=== PATIENT | male | born 1960 | race Two or more races ===

== ENCOUNTER 2018-11-01 11:04 | Inpatient (IN) | payer MEDICAID, OTHER ==
[2018-11-01] VITALS (13 sets, daily range): BP systolic 99–148; BP diastolic 47–93
[~2018-11-01] VITALS: Ht 175.3 cm; Wt 58.2 kg
--- NOTE | 2018-11-01 11:05 | NUR ---
PT JUAN FROM [address] [place] [address] FOR HYPOTENSION, PT AAOX2-3, -SOB, NAD NOTED, PENDING ER PROVIDER HUEYAL
[2018-11-01] MEDS ORDERED: IV NS 0.9% 1,000 ML BAG IV ONE ×3 (11:30→13:00)
[2018-11-01 12:16] LABS: BASOPHILS # (AUTO) 0.1 /CMM (0.0-0.2); BASOPHILS % (AUTO) 0.2 % (0.0-2.0); EOSINOPHILS % (AUTO) 0.2 % (0.0-6.0); HEMATOCRIT 32 % (39-51); HEMOGLOBIN 9.8 g/dL (13.5-17.5); LYMPHOCYTES # (AUTO) 1.8 /CMM (0.8-4.8); LYMPHOCYTES % (AUTO) 4.2 % (20.0-44.0); MEAN CORPUSCULAR HGB CONC 31 g/dl (31.0-36.0); MEAN CORPUSCULAR VOLUME 92 fL (80-96); MONOCYTES # (AUTO) 2.1 /CMM (0.1-1.30); NEUTROPHILS # (AUTO) 38.3 /CMM (1.8-8.9); NEUTROPHILS % (AUTO) 90.4 % (43.0-81.0); PLATELET COUNT (AUTO) 78 /CMM (150-450)
[2018-11-01 12:29] LABS: ALBUMIN 1.7 g/dL (3.4-5.0); BILIRUBIN,DIRECT 0.2 mg/dL (0.0-0.2); BILIRUBIN,TOTAL 0.4 mg/dL (0.2-1.0); CALCIUM, SERUM 7.5 mg/dL (8.5-10.1); CREATININE 6.4 mg/dL (0.6-1.3); POTASSIUM 5.1 mmol/L (3.5-5.1); TOTAL PROTEIN, SERUM 5.4 g/dL (6.4-8.2)
[2018-11-01 12:36] LABS: WHITE BLOOD COUNT (AUTO) 42.4 K/uL (4.3-11.0)
[2018-11-01] MEDS ORDERED: ALBUMIN 25% 12.5 GM/50 ML BOTTLE IV ONE (13:00)
[2018-11-01] MEDS ORDERED: SODIUM BICARBONATE SYR 50 MEQ/50 ML DISP.SYRIN IV ONE (13:00)
[2018-11-01] MEDS ORDERED: INSULIN REGULAR, HUMAN 100 UNIT/ML 10 ML VIAL SQ ONE (13:00)
[2018-11-01] MEDS ORDERED: ALBUMIN 25% 100 ML IV ONE (13:01)
[2018-11-01] MEDS ORDERED: SODIUM BICARBONATE SYR 50 MEQ/50 ML DISP.SYRIN ONE (13:02)
[2018-11-01] MEDS ORDERED: INSULIN REGULAR, HUMAN 100 UNIT/ML 10 ML VIAL ONE (13:02)
--- NOTE | 2018-11-01 13:02 | NUR ---
ADMITTING GIVEN MOVE SHEET FOR REGAL AUTH
[2018-11-01 13:44] LABS: BAND % (MANUAL) 3 % (0.0-5.0); LYMPHOCYTES % (MANUAL) 6 % (16-48); MONOCYTES % (MANUAL) 15 % (0-11.0); NEUTROPHILS % (MANUAL) 76 (42-76)
--- NOTE | 2018-11-01 14:11 | NUR ---
ICU BED REQUESTED
[2018-11-01] MEDS ORDERED: MAGN400O6 PO (14:27)
[2018-11-01] MEDS ORDERED: ASPI-1169 PO (14:27)
[2018-11-01] MEDS ORDERED: SENN-168 PO (14:27)
[2018-11-01] MEDS ORDERED: NA P133E RC (14:27)
[2018-11-01] MEDS ORDERED: CRAN450C PO (14:27)
[2018-11-01] MEDS ORDERED: SERT100T PO (14:27)
[2018-11-01] MEDS ORDERED: CHOL100040 PO (14:27)
[2018-11-01] MEDS ORDERED: ROSU20TA2 PO (14:27)
[2018-11-01] MEDS ORDERED: FAMO20TA8 PO (14:27)
[2018-11-01] MEDS ORDERED: ACET325T53 PO (14:27)
[2018-11-01] MEDS ORDERED: LOPE2CAP PO (14:27)
[2018-11-01] MEDS ORDERED: TAMS-12 PO (14:27)
[2018-11-01] MEDS ORDERED: LACT1CAP69 PO (14:27)
[2018-11-01] MEDS ORDERED: INSU100V27 SQ (14:27)
[2018-11-01] MEDS ORDERED: REPA0.5T4 PO (14:27)
[2018-11-01] MEDS ORDERED: FERR325T23 PO (14:27)
[2018-11-01] MEDS ORDERED: MIDO5TAB PO (14:27)
[2018-11-01] MEDS ORDERED: CALC-494 PO (14:27)
[2018-11-01] MEDS ORDERED: ONDA4TAB5 PO (14:27)
[2018-11-01] MEDS ORDERED: BISA10SU61 RC (14:27)
[2018-11-01] MEDS ORDERED: HYDR-4384 PO (14:27)
--- NOTE | 2018-11-01 14:44 | NUR ---
JEFF DELEON CALLED REGARDING PT, WILL CALL BACK FOR MORE INFO
--- NOTE | 2018-11-01 15:05 | NUR ---
NURSING SUP STATES IN A MEETING WILL CALL BACK
--- NOTE | 2018-11-01 15:06 | NUR ---
ICU 259
--- NOTE | 2018-11-01 15:28 | NUR ---
REPORT GIVEN REYES RN FOR RENETTA; PT WILL BE TRANSPORTED TO ICU VIA ACLS PROTOCOL
--- NOTE | 2018-11-01 15:30 | NUR ---
OVEN DAUBER NOTE RECEIVED REPORT FROM ER NURSE SAGE
--- NOTE | 2018-11-01 15:50 | NUR ---
BRICKLAYER PAVING BRICK INITIAL NOTE RECEIVED PATIENT AWAKE A/OX3, ABLE TO MAKE NEEDS KNOWN. RESPIRATIONS EVEN AND UNLABORED ON ROOM AIR TOLERATING WELL. ON TELE MONITOR SR. SKIN COOL AND DRY TO TOUCH. PER ER NURSE REPORT PATIENT HAS NO OUTPUT. F/C PATENT AND INTACT, NO OUTPUT NOTED. SKIN ASSESSMENT DONE. ABLE TO ASSIST WITH TURNING. NOTED WITH LOW TEMP, BARE HUGGER ORDERED, WILL PLACE ONCE RECEIVED. PERIPHERAL LINES PATENT AND INTACT. PENDING MD ORDER. ORIENTED PATIENT TO ROOM AND CALL LIGHT BUTTON. PATIENT VERBALIZED UNDERSTANDING TO CALL FOR ASSISTANCE WHEN NEEDED. SIDE RAILS UP AND LOCKED. BED KEPT AT LOWEST POSITION. CALL LIGHT KEPT WITHIN EASY REACH. WILL CONTINUE TO MONITOR.
--- NOTE | 2018-11-01 15:50 | NUR ---
PT WAS TRANSPORTED TO ICU
--- NOTE | 2018-11-01 16:30 | NUR ---
MUSTANGER NOTE SPOKE WITH PATIENT [facility] REGARDING NEXT OF KIN. PER CHARGE NURSE PATIENT HAS NO FAMILY MEMBER AND PATIENT IS RESPONSIBLE FOR HIMSELF.
[2018-11-01] MEDS ORDERED: *INSULIN REGULAR(HUMULIN R)HUM 100 UNIT/ML VIAL SQ PRN (17:30)
[2018-11-01] MEDS ORDERED: MIDODRINE HCL (5MG) 5 MG TABLET PO SCH (17:30)
[2018-11-01] MEDS ORDERED: DEXTROSE 50%-WATER 50 ML DISP.SYRIN IV PRN (17:30)
[2018-11-01] MEDS: IV NS 0.9% 1,000 ML IV PRN ×2 (17:37→23:55)
[2018-11-01] MEDS: BLOOD SUGAR DIAGNOSTIC 1 EACH STRIP VI SCH ×2 (17:55→22:01)
--- NOTE | 2018-11-01 18:51 | NUR ---
PRESENTATION SPECIALIST CLOSING NOTE NO APPARENT DISTRESS NOTED. ALL NEEDS ANTICIPATED AND MET. TEMPERATURE IMPROVING. F/C IN PLACE. SIDE RAILS UP AND LOCKED. BED KEPT AT LOWEST POSITION. CALL LIGHT KEPT WITHIN EASY REACH. BARE HUGGER IN PLACE. WILL ENDORSE TO CONTINUITY OF CARE TO PM NURSE.
[2018-11-01] MEDS: INSULIN REGULAR, HUMAN 100 UNIT/ML 3 ML VIAL SQ PRN (19:01)
--- NOTE | 2018-11-01 20:00 | NUR ---
RETAIL SOLAR ADVISOR NOTES RECEIVED PT ON BED.A/O X3 ON RA SATURATING WELL. ON TELE MONITOR SR 100. IV ACCESS PATENT AND INTACT. JORDAN CATH DRAINING NOT DRAINING ANY URINE. PT ON BEAR HUGGER FOR HYPOTENSION. HEAD OF BED ELEVATED. SIDE RAILS UP. CALL LIGHT WITHIN REACH. BED ALARM ON. WILL CONTINUE TO MONITOR PT CLOSELY.
[2018-11-01 21:26] LABS: IRON, SERUM 116 ug/dl (50-175); TOTAL IRON BINDING CAPACITY 146 ug/dl (250-450)
[2018-11-01] MEDS ORDERED: TAMSULOSIN 0.4 MG CAP.SR.24H PO SCH (22:00)
--- NOTE | 2018-11-01 23:27 | NUR ---
SKID ROAD MAN NOTES CALLED DR BROOKS FOR CT ABD RESULT. LASIX 40MG IV ONE TIME AND FLAGYL 500MG Q8H PO. PER DR BROOKS , PT STILL OKAY FOR TELE STATUS, WILL MONITOR PT CLOSELY.
[2018-11-01] MEDS ORDERED: FUROSEMIDE 40 MG/4 ML VIAL IV ONE (23:30)
[2018-11-01] MEDS: METRONIDAZOLE 500 MG TABLET PO SCH (23:50)
--- NOTE | 2018-11-01 23:51 | NUR ---
RULING MACHINE FEEDER NOTES LASIX NOT GIVEN , BP 94/48. DR BROOKS INFORMED.
[2018-11-02] VITALS (47 sets, daily range): BP systolic 54–155; BP diastolic 23–100
--- NOTE | 2018-11-02 02:51 | NUR ---
MINING MACHINERY ASSEMBLER NOTES BLADDER SCAN DONE. 300 ML OF RESIDUAL URINE, JORDAN CATHETER NOT DRAINING ANY URINE. PRIMARY RN AND CHARGE NURSE INSERTED NEW JORDAN CATH, NO URINE DRAINED. WILL FOLLOW UP MD IN AM.
[2018-11-02] MEDS ORDERED: NOREPINEPHRINE 4 MG/4 ML AMPUL IV ONE (04:18)
[2018-11-02] MEDS ORDERED: NOREPINEPHRINE 16 MG in IV D5W 500 ML IV PRN (04:30)
--- NOTE | 2018-11-02 04:39 | NUR ---
ORTHOPEDIC PHYSICIAN NOTES CALLED DR BROOKS FOR HYPOTENSION. PER DR BROOKS, START LEVOPHED DRIP AND ICU ORDER.
[2018-11-02] MEDS: METRONIDAZOLE 500 MG TABLET PO SCH ×2 (04:42→04:51)
--- NOTE | 2018-11-02 04:42 | NUR ---
SEED LABORATORY ASSISTANT NOTES HOLDING PO METRONIDAZOLE, PT ASPIRATION RISK.
[2018-11-02 04:48] LABS: BASOPHILS # (AUTO) 0.1 /CMM (0.0-0.2); BASOPHILS % (AUTO) 0.3 % (0.0-2.0); EOSINOPHILS % (AUTO) 0.2 % (0.0-6.0); HEMATOCRIT 37 % (39-51); HEMOGLOBIN 11.5 g/dL (13.5-17.5); LYMPHOCYTES # (AUTO) 2.2 /CMM (0.8-4.8); LYMPHOCYTES % (AUTO) 4.1 % (20.0-44.0); MEAN CORPUSCULAR HGB CONC 31 g/dl (31.0-36.0); MEAN CORPUSCULAR VOLUME 89 fL (80-96); MONOCYTES # (AUTO) 2.4 /CMM (0.1-1.30); MONOCYTES % (AUTO) 4.6 % (2.0-12.0); NEUTROPHILS # (AUTO) 47.4 /CMM (1.8-8.9); NEUTROPHILS % (AUTO) 90.8 % (43.0-81.0); PLATELET COUNT (AUTO) 93 /CMM (150-450); RED BLOOD CELL COUNT(AUTO) 4.16 MIL/uL (4.5-6.0)
[2018-11-02 05:09] LABS: THYROID STIMULATING HORMONE 1.353 uIU/mL (0.358-3.74)
[2018-11-02 05:10] LABS: WHITE BLOOD COUNT (AUTO) 52.2 K/uL (4.3-11.0)
[2018-11-02 05:28] LABS: CALCIUM, SERUM 7.5 mg/dL (8.5-10.1); CREATININE 6.5 mg/dL (0.6-1.3); MAGNESIUM 2.3 mg/dL (1.8-2.4); POTASSIUM 4.8 mmol/L (3.5-5.1)
--- NOTE | 2018-11-02 05:40 | NUR ---
AMMUNITION OFFICER NOTES CALLED DR BROOKS FOR WBC 52.2 AND BUN OF 114. PER DR CECILIA PEÑA 2.25G IV Q8H.
[2018-11-02 05:46] LABS: LYMPHOCYTES % (MANUAL) 4 % (16-48); MONOCYTES % (MANUAL) 4 % (0-11.0); NEUTROPHILS % (MANUAL) 83 (42-76)
[2018-11-02 05:47] LABS: BAND % (MANUAL) 5 % (0.0-5.0); METAMYELOCYTES % 4 % (0-0)
[2018-11-02] MEDS ORDERED: PIPERACILLIN /TAZOBACTAM 2.25 G in IV D5W 50 ML IV SCH ×2 (06:00→13:00)
[2018-11-02] MEDS ORDERED: PIPERACILLIN /TAZOBACTAM 2.25 G VIAL IV ONE (06:05)
--- NOTE | 2018-11-02 07:30 | NUR ---
SPLITTER HEAD INITIAL NOTE RECEIVED PATIENT RESTLESS, DROWSY, A/OX3, FOLLOWS COMMANDS AND ABLE TO MAKE NEEDS KNOWN. ABDOMEN TENDER TO TOUCH. SKIN COOL AND DRY TO TOUCH. SINUS TACH ON TELE MONITOR. WITH F/C IN PLACE, NO OUTPUT NOTED. ON LEVO AT 5MCG/MIN AND IVF AT 125ML/HR. SIDE RAILS UP AND LOCKED. BED KEPT AT LOWEST POSITION. CALL LIGHT KEPT WITHIN EASY REACH. WILL CONTINUE TO MONITOR.
[2018-11-02] MEDS: IV NS 0.9% 1,000 ML IV PRN (08:13)
--- NOTE | 2018-11-02 08:21 | NUR ---
CANINE DEPUTY NOTE INFORMED DR BROOKS REGARDING PATIENT RESTLESS, DROWSY AND TENDER ABDOMEN WITH ORDERS FOR US GUIDED PARACENTESIS TO BE DONE TODAY. NOTED AND CARRIED OUT.
[2018-11-02] MEDS: BLOOD SUGAR DIAGNOSTIC 1 EACH STRIP VI SCH (08:41)
[2018-11-02] MEDS: INSULIN REGULAR, HUMAN 100 UNIT/ML 3 ML VIAL SQ PRN (08:53)
[2018-11-02] MEDS ORDERED: REPAGLINIDE 0.5 MG TABLET PO SCH (09:00)
[2018-11-02] MEDS ORDERED: CALCIUM CARBONATE 500 MG TAB.CHEW PO SCH (09:00)
[2018-11-02] MEDS ORDERED: ASPIRIN 81 MG TAB.CHEW PO SCH (09:00)
[2018-11-02] MEDS ORDERED: SERTRALINE HCL 50 MG TABLET PO SCH (09:00)
[2018-11-02] MEDS ORDERED: MIDODRINE HCL (5MG) 5 MG TABLET PO SCH ×2 (09:00→13:00)
[2018-11-02] MEDS ORDERED: FAMOTIDINE (20 MG) 20 MG TABLET PO SCH (09:00)
[2018-11-02] MEDS ORDERED: LACTOBACILLUS RHAMNOSUS GG 1 EACH CAP.SPRINK PO SCH (09:00)
[2018-11-02] MEDS ORDERED: FERROUS SULFATE (325 MG) 325 MG/TAB TABLET PO SCH (09:00)
--- NOTE | 2018-11-02 09:09 | NUR ---
MEDICAL INSTRUMENT TECHNICIAN NOTE SEEN AND EXAMINED BY DR. BROOKS, EXPLAINED PLAN FOR US GUIDED PARACENTESIS. CONSENT RECEIVED.
[2018-11-02] MEDS ORDERED: INSULIN GLARGINE, 100 UNIT/ML CARTRIDGE SQ SCH (09:30)
[2018-11-02] MEDS ORDERED: FUROSEMIDE 20 MG/2 ML VIAL IV ONE (09:30)
--- NOTE | 2018-11-02 09:53 | NUR ---
DEFENCE FORCE SENIOR OFFICER NOTE NON-ADMIN LANTUS, POOR ORAL INTAKE, DID NOT EAT BREAKFAST
--- NOTE | 2018-11-02 09:54 | NUR ---
MARKET DEVELOPMENT EXECUTIVE NOTE SPOKE WITH INTEGRATION AIDE, WILL COME AROUND 11AM TO DO PROCEDURE.
--- NOTE | 2018-11-02 10:29 | NUR ---
LADIES SUIT OPERATOR NOTE ALL PINK STCK MED ONCE CLEARED FOR PATIENTS SAFETY
--- NOTE | 2018-11-02 10:59 | NUR ---
TRIAGE LICENSED PRACTICAL NURSE NOTE PATIENT UNRESPONSIVE. DORIE HACKETT INITIATED. PLEASE SEE DORIE HACKETT FORM. Addendum: 11/02/18 at 1542 by REYES SANTIAGO RN CHIN ADD TO NOTE: BULLET LUBRICANT MIXER NOTED PATIENT BLOOD PRESSURE LOW AND HEART RATE DROPPING. ENTERED PATIENTS ROOM TO ASSESS, NOTED PATIENT TO BE UNRESPONSIVE AND PULSELESS. DORIE HACKETT CALLED AND CPR INITIATED.
--- NOTE | 2018-11-02 11:14 | NUR ---
HAT DESIGNER NOTE DR. BROOKS MADE AWARE PATIENT .
--- NOTE | 2018-11-02 11:33 | NUR ---
TYPING SECTION CHIEF NOTE [employer] INFORMED SPOKE WITH LAURA REFERANCE NUMBER [id number]
--- NOTE | 2018-11-02 11:35 | NUR ---
[facility] OF MATH AND SCIENCE INSTRUCTOR CALLED. INFORMATION GIVEN. PATIENT IS NOT A MATH AND SCIENCE INSTRUCTOR'S CASE AND OKAY TO RELEASE BODY TO MORTUARY.
--- NOTE | 2018-11-02 11:49 | NUR ---
SHIPPING PROCESSOR NOTE SPOKE WITH [facility] [employer] TO CONFIRM PATIENT HAS NO FAMILY MEMBER. PER CHARGE NURSE DELMIS PATIENT HAS NO FAMILY MEMBER.
--- NOTE | 2018-11-02 12:26 | NUR ---
DIGITAL MARKETING MANAGER NOTE POSTMORTEM CARE DONE
[2018-11-02] MEDS ORDERED: SODIUM BICARBONATE SYR 50 MEQ/50 ML DISP.SYRIN IV ONE (13:14)
[2018-11-02] MEDS ORDERED: EPINEPHRINE (1:10,000) SYRINGE 1 MG/10 ML DISP.SYRIN IVP ONE (13:14)
--- NOTE | 2018-11-02 13:30 | NUR ---
PIPE RACKER NOTE BODY ESCORTED DOWN TO MORTUARY WITH SECURITY GUARDS
== END 2018-11-02 17:50 | disposition expired | DRG 720 ==
LOC: ER 11:10 → ICU 15:24
PROVIDERS: ADMIT Internal Medicine; ATTEND Internal Medicine
PROC: 05H533Z Insertion of Infusion Device into Right Subclavian Vein, Percutaneous Approach (ICD-10-PCS; principal; 2018-11-01)
PROC: 5A12012 Performance of Cardiac Output, Single, Manual (ICD-10-PCS; 2018-11-02)
PROC: 0BH18EZ Insertion of Endotracheal Airway into Trachea, Via Natural or Artificial Opening Endoscopic (ICD-10-PCS; 2018-11-02)
DX: A41.9 Sepsis, unspecified organism (principal); N17.0 Acute kidney failure with tubular necrosis; R65.21 Severe sepsis with septic shock; J90 Pleural effusion, not elsewhere classified; E46 Unspecified protein-calorie malnutrition; K65.2 Spontaneous bacterial peritonitis; D69.59 Other secondary thrombocytopenia; E11.22 Type 2 diabetes mellitus with diabetic chronic kidney disease; E87.1 Hypo-osmolality and hyponatremia; E87.2 Acidosis; N18.9 Chronic kidney disease, unspecified; I12.9 Hypertensive chronic kidney disease with stage 1 through stage 4 chronic kidney disease, or unspecified chronic kidney disease; E78.5 Hyperlipidemia, unspecified; E86.0 Dehydration; K70.9 Alcoholic liver disease, unspecified; I25.10 Atherosclerotic heart disease of native coronary artery without angina pectoris; I25.2 Old myocardial infarction; Z79.4 Long term (current) use of insulin; Z87.440 Personal history of urinary (tract) infections; R18.8 Other ascites; D72.819 Decreased white blood cell count, unspecified; K52.9 Noninfective gastroenteritis and colitis, unspecified; F32.9 Major depressive disorder, single episode, unspecified; D64.9 Anemia, unspecified; E88.09 Other disorders of plasma-protein metabolism, not elsewhere classified; F10.20 Alcohol dependence, uncomplicated; J98.11 Atelectasis; E11.51 Type 2 diabetes mellitus with diabetic peripheral angiopathy without gangrene
CPT/HCPCS: 36415; 70450-TC; 71045-TC; 76770-TC; 80048-TC; 80076-TC; 82962-TC; 83540-TC; 83605-TC; 83735-TC; 84443-TC; 84484-TC; 85025-TC; 85730-TC; 86850-TC; 87040-TC; 87081-TC; 93926-TC; A6253; A6403; G0378; J0171; J1815; J1940; J2543; J3490; J7030; J7060; P9047